=== PATIENT | male | born 1985 | race Caucasian/White ===

== ENCOUNTER 2023-01-18 10:27 | Emergency (ER) | payer BC, SELFPAY ==
[2023-01-18 10:35] VITALS: BP 149/84; PULSE 74; RESP 16; TEMP 36.8; O2SAT 97; BMI 27.9
--- NOTE | 2023-01-18 10:45 | ED.GENADUL1 ---
HPI - General Adult General Chief complaint: Headache Stated complaint: BODYACHES AND HEADACHES Time Seen by Provider: 01/18/23 10:31 Source: patient Mode of arrival: walk-in Limitations: no limitations History of Present Illness HPI narrative: 37-year-old male presents for body aches and headache and some vomiting. He's worried he might have Covid. He had it a year and half ago and he feels similar. He is not vaccinated. He did not check his temperature home. Symptoms present for about thirty-six hours. Related Data Previous Rx's Medication Instructions Recorded ondansetron HCl 4 mg tablet 4 mg PO Q6H PRN nausea and 01/18/23 vomiting #20 tabs Allergies Allergy/AdvReac Type Severity Reaction Status Date / Time allantoin [From Orajel] Allergy Unknown Rash Verified 01/18/23 10:35 benzalkonium chloride Allergy Unknown Rash Verified 01/18/23 10:35 [From Orajel] benzocaine [From Orajel] Allergy Unknown Rash Verified 01/18/23 10:35 carbamide peroxide Allergy Unknown Rash Verified 01/18/23 10:35 [From Orajel] zinc chloride [From Orajel] Allergy Unknown Rash Verified 01/18/23 10:35 Review of Systems ROS Narrative A ten point review of systems is negative except as noted above. PFSH PFSH Social History Smoking status: Former smoker Exam Narrative Exam Narrative: Nurses note and vital signs reviewed and patient is not hypoxic. General: The patient appears well and in no apparent distress. Patient is resting comfortably on cart. Skin: Warm, dry, no pallor noted. There is no rash noted. Head: Normocephalic, atraumatic Eye: Normal conjunctiva, no drainage Ears, Nose, Mouth, and Throat: oral mucosa is moist. Nares patent. Cardiovascular: Regular Rate and Rhythm Respiratory: Patient is in no distress, no accessory muscle use, lungs are clear to auscultation, no wheezing, rales or rhonchi Back: non-tender GI: soft and nontender Musculoskeletal: The patient has no evidence of calf tenderness, no pitting edema, symmetrical pulses noted bilaterally Neurological: A&O, normal speech Psychiatric: Cooperative Constitutional Vital Signs, click to edit/add: Last Vital Signs Temp 98.2 F 01/18/23 10:35 Pulse 74 01/18/23 10:35 Resp 16 01/18/23 10:35 BP 149/84 H 01/18/23 10:35 Pulse Ox 97 01/18/23 10:35 O2 Del Method Room Air 01/18/23 10:35 Course Vital Signs Vital signs: Vital Signs Temperature 98.2 F 01/18/23 10:35 Pulse Rate 74 01/18/23 10:35 Respiratory Rate 16 01/18/23 10:35 Blood Pressure 149/84 H 01/18/23 10:35 Pulse Oximetry 97 01/18/23 10:35 Oxygen Delivery Method Room Air 01/18/23 10:35 Temperature 98.2 F 01/18/23 10:35 Pulse Rate 74 01/18/23 10:35 Respiratory Rate 16 01/18/23 10:35 Blood Pressure 149/84 H 01/18/23 10:35 Pulse Oximetry 97 01/18/23 10:35 Oxygen Delivery Method Room Air 01/18/23 10:35 Medical Decision Making MDM Narrative Medical decision making narrative: Covid test is negative. My clinical impression is that he has viral illness. Antibiotic not indicated. Treatment diagnosis and follow-up were discussed with the patient. Lab Data Lab results reviewed: Yes I reviewed the patient's lab results Labs: Lab Results 01/18/23 Range/Units 10:40 SARS-CoV-2 (PCR) Negative (NEGATIVE) Discharge Plan Discharge Chief Complaint: Headache Clinical Impression: Viral syndrome Patient Disposition: Home, Self-Care Time of Disposition Decision: 11:08 Condition: Good Mode of Transportation: Private Vehicle Prescriptions / Home Meds: New ondansetron HCl 4 mg tablet 4 mg PO Q6H PRN (Reason: nausea and vomiting) Qty: 20 0RF Instructions: Viral Syndrome (ED) Stand Alone Forms: Portal Instructions Referrals: Physician,Non-Staff, MD [Primary Care Provider] - 1 week
[2023-01-18 11:03] LABS: SARS-CoV-2 Ag NEGATIVE (NEGATIVE)
[2023-01-19 09:06] LABS: SARS-CoV-2 NAA NOT DETECTED (NOT DETECTE)
== END 2023-01-18 11:18 | disposition home or self-care (01) ==
PROVIDERS: Emergency Provider Emergency Medicine
DX: B34.9 Viral infection, unspecified (principal); Z86.16 Personal history of COVID-19; Z28.310 Unvaccinated for COVID-19; Z87.891 Personal history of nicotine dependence; Z20.822 Contact with and (suspected) exposure to COVID-19
CPT/HCPCS: 87635; 87811; 99283; U0003